=== PATIENT | female | born 1960 | race Caucasian/White ===

== ENCOUNTER 2017-07-30 18:29 | Emergency (ER) | payer OTHER ==
[2017-07-30 18:34] VITALS: BP 169/71; TEMP 98.3; BMI 38.2
[2017-07-30] MEDS ORDERED: BACTRIM DS 800/160 MG PO STA (18:41)
[2017-07-30] MEDS ORDERED: TYLENOL PO STA (18:41)
--- NOTE | 2017-07-30 18:46 | ED.PDOC ---
General ED Provider: Dr. RADHA ROCKWELL Chief Complaint: Abscess Stated Complaint: Pateint is a 56 year old Female who comes to the ER with chest wall swelling for the past few days. Area is on her bra line and has been bothering her . Time Seen by Physician: 18:42 Mode of Arrival: Walk-In Information Source: Patient Exam Limitations: No limitations Primary Care Provider: LOUIS KERR Nursing and Triage Documentation Reviewed and Agree: Yes Skin Complaint Exam - Skin/Soft Tissue Complaint/Exam Onset/Duration: 2 days Symptoms Are: Still present Timing: Constant Initial Severity: Mild Current Severity: Mild Location: mid lower chest Character: Reports: Redness, Swelling, Raised, Painful Aggravating: Reports: Touch Alleviating: Reports: None Associated Signs and Symptoms: Reports: Tenderness, Red streaks. Denies: Fever , Chills, Itching, Drainage, Bruising, Joint swelling Related History: Denies: Recent trauma, Foreign body, Insect bite/sting, Prior MRSA/VRE, Recent travel Related Surgical History: Reports: None Recent Exposure to Others w/Similar Symptoms: No Skin Findings: Present: Erythema (Has not formed a head yet. ), Induration Joint Tenderness Present: Yes Differential Diagnoses: Abscess, Cellulitis Review of Systems - Review Of Systems Constitutional: Reports: No symptoms Eyes: Reports: No symptoms Ears, Nose, Mouth, Throat: Reports: No symptoms Respiratory: Reports: No symptoms Cardiac: Reports: No symptoms GI: Reports: No symptoms : Reports: No symptoms Musculoskeletal: Reports: No symptoms Skin: Reports: Lesions (mild lower chest ) Neurological: Reports: Anxiety Endocrine: Reports: No symptoms Hematologic/Lymphatic: Reports: No symptoms All Other Systems: Reviewed and Negative Past Medical History - Past Medical History Endocrine: Reports: Hypothyroid Cardiovascular: Reports: Hypertension Respiratory: Reports: None Hematological: Reports: None Gastrointestinal: Reports: None Genitourinary: Reports: None Neuro/Psych: Reports: Depression Musculoskeletal: Reports: None Cancer: Reports: None Last Menstrual Period: none - Surgical History General Surgical History: Reports: Hysterectomy, Cholecystectomy - Family History Family History: Reports: None - Social History Smoking Status: Never smoker Hx Substance Use: No Alcohol Screening: None Physical Exam - Physical Exam Appearance: Well-appearing, Obese Pain Distress: Mild Neck: Supple Respiratory: Airway patent, Breath sounds clear, Breath sounds equal, Respirations nonlabored Cardiovascular: RRR, Pulses normal, No rub, No murmur Musculoskeletal: Normal strength, ROM intact, No edema, No calf tenderness Skin: Warm, Dry Neurological: Sensation intact, Motor intact, Alert, Oriented Psychiatric: Anxious Critical Care Note - Critical Care Note Total Time (mins): 0 Course - Course Orders, Labs, Meds: Orders Category Date Time Status Acetaminophen [Tylenol] MEDS 07/30/17 18:41 Stat 1,000 mg PO ONCE STA Sulfamethoxazole/Trimethoprim [Bactrim Ds 800/160 mg] MEDS 07/30/17 18:41 Stat 1 tab PO ONCE STA Medications Discontinued Medications Generic Name Dose Route Start Last Admin Trade Name Zayq PRN Reason Stop Dose Admin Acetaminophen 1,000 mg 07/30/17 18:41 Tylenol PO 07/30/17 18:42 ONCE STA Trimethoprim/Sulfamethoxazole 1 tab 07/30/17 18:41 Bactrim Ds 800/160 Mg PO 07/30/17 18:42 ONCE STA Vital Signs: Temp Pulse Resp BP Pulse Ox 07/30/17 18:30 98.3 F 72 20 169/71 H 94 L Departure - Departure Time of Disposition: 18:49 Disposition: HOME SELF-CARE Discharge Problem: Abscess Instructions: Abscess (ED) Condition: Fair Pt referred to PMD for follow-up: Yes Additional Instructions: Take antibiotics as prescribed. Take Tylenol or Motrin as needed for pain Follow up with PCP In 3-5 days Prescriptions: Sulfamethoxazole/Trimethoprim [Bactrim Ds Tablet] 1 each PO BID #20 tablet Allergies/Adverse Reactions: Allergies codeine Adverse Reaction (Verified 07/30/17 18:34) Swelling Home Medications: Ambulatory Orders Calcium Carbonate/Vitamin D3 [Calcium 600 + Vit D3 Caplet] 1 tab PO DAILY Cetirizine HCl [Zyrtec] 10 mg PO DAILY 01/15/15 Irbesartan 300 mg PO DAILY 01/15/15 Levothyroxine Sodium [Synthroid] 75 mcg PO QDAC 01/15/15 Meclizine HCl [Antivert] 25 mg PO DAILY 01/15/15 Oxybutynin Chloride [Ditropan Xl] 10 mg PO DAILY 01/15/15 Paroxetine HCl 15 mg PO DAILY 01/15/15 Aspirin [Aspirin Chewable] 81 mg PO DAILYWM 07/30/17 Multivitamin 1 cap PO DAILY 07/30/17 [place]-3 Fatty Acids/Fish Oil [Fish Oil 1,000 mg Capsule] 1 each PO DAILY Sulfamethoxazole/Trimethoprim [Bactrim Ds Tablet] 1 each PO BID #20 tablet 07/30 Disposition Discussed With: Patient, Family
== END 2017-07-30 18:59 | disposition home or self-care (01) ==
LOC: ED 18:29
DX: L02.213 Cutaneous abscess of chest wall (principal)
CPT/HCPCS: 99282

== ENCOUNTER 2019-01-17 11:04 | Outpatient (CLI) | END 2019-01-17 11:05 | disposition home or self-care (01) | LOC: LAB 11:04 | PROVIDERS: ATTEND Family Medicine | DX: R73.09 Other abnormal glucose (principal); E03.8 Other specified hypothyroidism; I10 Essential (primary) hypertension; Z13.6 Encounter for screening for cardiovascular disorders | CPT/HCPCS: 36415; 80053; 80061; 83036; 84443 ==

== ENCOUNTER 2019-01-22 10:44 | Outpatient (CLI) | payer OTHER ==
--- NOTE | 2019-01-26 09:55 | MAMMO ---
EXAM: Bilateral digital screening mammogram (2-D and 3-D) History: Screening Comparison: Bilateral mammogram 01/05/2018 Findings: MLO and CC views of bilateral breasts demonstrate scattered fibroglandular breast parenchy ma. CAD was reviewed by the radiologist. Tomosynthesis was performed. Stable benign bilateral funmi st nodules. There are no developing masses, no suspicious microcalcifications and no architectural d istortions Impression: Benign stable mammogram. Recommend followup routine screening mammography in 1 year. BI-RADS 2, benign
== END 2019-01-22 10:45 | disposition home or self-care (01) ==
LOC: RAD 10:44
PROVIDERS: ATTEND Physician Assistant
DX: Z12.31 Encounter for screening mammogram for malignant neoplasm of breast (principal)